=== PATIENT | female | born 1990 | race African-American/Black ===

== ENCOUNTER 2017-12-12 17:17 | Emergency (ER) | payer OTHER ==
[~2017-12-12] VITALS: Ht 167.6 cm; Wt 70.3 kg
[2017-12-12] MEDS ORDERED: LORAZEPAM 1 MG TABLET PO ONE (18:00)
[2017-12-12] MEDS ORDERED: LORAZEPAM 1 MG TABLET ONE (18:00)
--- NOTE | 2017-12-12 18:20 | NUR ---
[facility] DT CHEST TIGHTNESS AND ANXIETY-- PATIENT IS AWAKE AND ALERT, APPEARS ANXIOUS " I FEEL LIKE I CANT BREATH, ITS ANXIETY" PATIENT IS SATING WELL ON ROOM AIR, SKIN IS WARM TO TOUCH AND NON DIAPHORETIC. AFEBRILE/ VSS
[2017-12-12 18:56] LABS: BASOPHILS # (AUTO) 0.1 /CMM (0.0-0.2); BASOPHILS % (AUTO) 1.7 % (0.0-2.0); EOSINOPHILS % (AUTO) 0.7 % (0.0-6.0); HEMATOCRIT 40 % (33-45); HEMOGLOBIN 13.7 g/dL (11.5-14.8); LYMPHOCYTES # (AUTO) 1.6 /CMM (0.8-4.8); LYMPHOCYTES % (AUTO) 22.9 % (20.0-44.0); MEAN CORPUSCULAR HEMOGLOBIN 30 PG (26.0-33.0); MEAN CORPUSCULAR HGB CONC 34 g/dl (31.0-36.0); MEAN CORPUSCULAR VOLUME 88 fL (82-100); MONOCYTES # (AUTO) 0.4 /CMM (0.1-1.30); MONOCYTES % (AUTO) 5.2 % (2.0-12.0); NEUTROPHILS # (AUTO) 4.8 /CMM (1.8-8.9); NEUTROPHILS % (AUTO) 69.5 % (43.0-81.0); PLATELET COUNT (AUTO) 204 /CMM (150-450); RDW COEFFICIENT OF VARIATION 13.9 (11.5-15.0); RED BLOOD CELL COUNT(AUTO) 4.56 MIL/uL (4.0-5.2); WHITE BLOOD COUNT (AUTO) 6.9 K/uL (4.3-11.0)
[2017-12-12 19:04] LABS: CALCIUM, SERUM 9.2 mg/dL (8.5-10.1); CARBON DIOXIDE 25 mmol/L (21-32); CHLORIDE 101 mmol/L (98-107); CREATININE 0.7 mg/dL (0.6-1.3); GLUCOSE 83 mg/dL (74-106); POTASSIUM 3.7 mmol/L (3.5-5.1); SODIUM SERUM 137 mmol/L (136-145); UREA NITROGEN, BLOOD 7 mg/dL (7-18)
[2017-12-12 19:14] LABS: TROPONIN I < 0.017 ng/mL (0.00-0.056)
[2017-12-12 19:22] LABS: INR 1.04 (0.87-1.13)
--- NOTE | 2017-12-12 19:34 | NUR ---
FAXED OVER AUTHORIZATION FOR USE OF HEALTH INFORMATION OVER TO [facility]
[2017-12-12 19:54] LABS: D-DIMER 0.24 mg/L(FEU (0.17-0.50)
--- NOTE | 2017-12-12 20:19 | NUR ---
Patient discharged to police custody in stable condition. Written and verbal after care instructions given. Patient verbalizes understanding of instruction. Patient is ambulatory with steady gait, vss. nad noted. no further complaints.
[2017-12-12 20:20] VITALS: BP 122/82
== END 2017-12-12 20:21 ==
LOC: ER 17:21
DX: R07.2 Precordial pain (principal); F41.9 Anxiety disorder, unspecified; K21.9 Gastro-esophageal reflux disease without esophagitis
CPT/HCPCS: 36415; 71045-TC; 80048-TC; 84484-TC; 85025-TC; 85378-TC; 85730-TC; A4606; Z7610